=== PATIENT | female | born 1940 | race Caucasian/White ===

== ENCOUNTER 2017-06-19 03:09 | Emergency (ER) | payer MEDICARE, BC ==
[2015-12-15 10:29] VITALS: BMI 21.0
[~2017-06-19 03:09] MED LIST: ACETAMINOPHEN500 M1 PO; ARMOUR THYROID90 MG PO; BAYER CHEWABLE81 MG PO; BENADRYL25 MG PO; BUSPAR 15 MG TA15 MG PO; CALCIUM 600+D T1 TA1 PO; CRANBERRY475 MG; FISH OIL 1,2001 CAP PO; HYDROCHLOROTHIA25 MG GT; ICAPS; MAG-OXIDE400 MG PO; MECLIZINE HCL12.5 MG PO; PRILOSEC20 MG PO; PROAIR HFA8.5 GM INH; STOOL SOFTENER240 MG PO; TOPROL XL50 MG PO; TRIGLIDE160 MG PO; TUMS500 MG PO; VITAMIN B-122500 MCG PO
[2017-06-19 03:46] LABS: BASOPHILS 0.3 % (0-2); EOSINOPHILS 1.1 % (0-7); HEMATOCRIT 38.6 % (36.0-48.0); HEMOGLOBIN 12.8 g/dL (12-16); LYMPHOCYTES 39.9 % (15-50); MCHC 33.2 g/dL (31.0-37.0); MCV 87.3 fL (80.0-100.0); MEAN PLATELET VOLUME 10.1 fL (7.4-10.4); MONOCYTES 9.8 % (2-11); NEUTROPHILS 48.9 % (40-80); RBC 4.42 10x6/uL (4.00-5.40); RDW 13.1 % (11.5-14.5); WBC 3.6 10x3/uL (4.8-10.8)
[2017-06-19 03:48] LABS: PLATELET COUNT 150 10x3/uL (130-400)
[2017-06-19 03:59] LABS: ALBUMIN 3.5 g/dL (3.4-5.0); ALKALINE PHOSPHATASE 67 U/L (46-116); ALT (SGPT) 26 U/L (10-68); BILIRUBIN - TOTAL 0.31 mg/dL (0.2-1.3); CALC OSMOLALITY 290 mosm/kg (275-300); CALCIUM 8.5 mg/dL (8.5-10.1); CARBON DIOXIDE 29.9 mmol/L (21.0-32.0); CHLORIDE - SERUM 106 mmol/L (98-107); CREATININE - SERUM 0.7 mg/dL (0.6-1.3); GLUCOSE 109 mg/dL (74-106); POTASSIUM - SERUM 3.2 mmol/L (3.5-5.1); PROTEIN - SERUM 6.4 g/dL (6.4-8.2); SODIUM 144 mmol/L (136-145); UREA NITROGEN 20 mg/dL (7-18); eGFR NON AFRICAN AMERICAN 86 mL/min (90-120)
[2017-06-19 04:08] LABS: CREATINE KINASE 105 UL (21-215); MAGNESIUM - SERUM 1.3 mg/dL (1.8-2.4); TROPONIN-I < 0.017 ng/mL (0.000-0.060)
== END 2017-06-19 05:12 | disposition home or self-care (01) ==
LOC: D.ER 03:09
PROVIDERS: Emergency Medicine
DX: R00.2 Palpitations (principal); E87.6 Hypokalemia; E83.42 Hypomagnesemia; I10 Essential (primary) hypertension; I44.0 Atrioventricular block, first degree

== ENCOUNTER → 2017-09-07 10:32 | Outpatient (CLI) | payer MEDICARE, BC ==
[2015-12-15 10:29] VITALS: BMI 21.0
== END | disposition home or self-care (01) ==
LOC: D.CT 10:32
DX: R22.1 Localized swelling, mass and lump, neck (principal)

== ENCOUNTER → 2017-11-29 13:24 | Outpatient (CLI) | payer MEDICARE, BC ==
[2015-12-15 10:29] VITALS: BMI 21.0
== END | disposition home or self-care (01) ==
LOC: D.CT 13:24
DX: Z82.49 Family history of ischemic heart disease and other diseases of the circulatory system (principal)

== ENCOUNTER → 2018-03-30 13:34 | Outpatient (CLI) | payer MEDICARE, BC ==
[2015-12-15 10:29] VITALS: BMI 21.0
== END | disposition home or self-care (01) ==
LOC: D.US 03-20 10:30
DX: M79.605 Pain in left leg (principal); M79.604 Pain in right leg

== ENCOUNTER → 2018-07-13 10:27 | Outpatient (CLI) | payer MEDICARE, BC ==
[2015-12-15 10:29] VITALS: BMI 21.0
== END | disposition home or self-care (01) ==
LOC: D.CT 10:27
DX: R94.39 Abnormal result of other cardiovascular function study (principal); I73.9 Peripheral vascular disease, unspecified

== ENCOUNTER → 2019-03-13 10:46 | Outpatient (CLI) | payer MEDICARE, BC ==
[2015-12-15 10:29] VITALS: BMI 21.0
--- NOTE | 2019-03-16 11:28 | EC ---
PATIENT:ARIELA CROSS DATE OF SERVICE: 03/13/19 SEX: F MEDICAL RECORD: [id number] DATE OF : 40 LOCATION:[facility] AGE OF PATIENT: 78 ADMISSION DATE: 03/13/19 REFERRING PHYSICIAN: INTERPRETING PHYSICIAN: NESS CABA MD ECHOCARDIOGRAM REPORT ECHO CHARGES 4 ECHO COMPLETE Date: 03/13/19 CLINICAL DIAGNOSIS: ANGINA/OLMSTEAD/BRADYCARDIA H/O CAD/HTN ECHOCARDIOGRAPHIC MEASUREMENTS (adult normal given) AC root (d.<3.7cm) 3.4 cm LV Septum d (<1.2 cm> 1.0 cm Valve Excursion 1.7 cm LV Septum (systole) 1.8 cm Left Atria (s.<4.0cm> 3.9 cm LVPW d(<1.2cm) 1.1 cm RV (d.<2.3cm) 2.3 cm LVPW (sytole) 1.6 cm LV diastole(<5.6CM) 4.4 cm MV E-F(>70mm/sec) cm LV systole 2.2 cm LVOT Diameter 1.7 cm MV exc.(>10mm) cm Est.ejection fraction (50-75%) % DOPPLER: LVIT cm/sec A 142 cm/sec E 96.0 cm/sec LA cm/sec RVSP 41.4 mmHg LVOT 109 cm/sec AOP1/2T m/s Asc. Ao 156 cm/sec RVOT 76.0 cm/sec RA cm/sec PA 104 cm/sec AV Gradient Peak 9.8 mmHg AV Mean 4.5 mmHg AV Area 1.7 cm MV Gradient Peak 12.0 mmHg MV Mean 4.5 mmHg MV Area cm COMMENTS: OP - HC Public Speaking Teacher: Starr LAMBERT KURT Channel Process Supervisor: 1 Dr. Caba TAPE# PACS Pericardial Effusion N DATE OF SERVICE: 03/13/2019 FINDINGS: 1. Left ventricular chamber size is within normal limits. Left ventricular systolic function is normal. Overall ejection fraction is estimated at 60%. 2. Left atrium, right atrium, and right ventricular chamber sizes are within normal limit. 3. Valvular structures have normal structure and motion. 4. Doppler interrogation reveals trace mitral regurgitation and moderate tricuspid regurgitation. No other valvular insufficiency or stenosis. ECHOCARDIOGRAM REPORT [id number] ARIELA CROSS Pulmonary systolic pressure is estimated at 41 mmHg. 5. No evidence of pericardial effusion or left ventricular thrombus. TRANSINT:[id number] Voice Confirmation ID: [id number] DOCUMENT ID: [id number] NESS CBAA MD at 1128 CC: [id number] DICTATION DATE: 03/14/19912 LITHOGRAPHIC ARTIST: 03/14/19 1232 DEP CLI 03/13/19 [id number] [place] [address]
--- NOTE | 2019-03-16 11:28 | ST ---
PATIENT:ARIELA CROSS MEDICAL RECORD: [id number] SEX: F LOCATION:[facility] ORDER #: ADMISSION DATE: 03/13/19 AGE OF PATIENT: 78 REFERRING PHYSICIAN: INTERPRETING PHYSICIAN: NESS DEL CASTILLO MD DATE OF SERVICE: 03/13/2019 PROCEDURE: Nuclear stress test. INDICATION: Angina, coronary artery disease, shortness of breath, and hypertension. She was exercised on standard Lexiscan protocol with 31 mCi of sestamibi injected at peak stress, 10 mCi used previously for rest images. FINDINGS: Gated SPECT reveals preserved ejection fraction at 68% with good wall motion and thickening and brightening throughout all segments. SPECT imaging Cardiolite was used as myocardial fusion agent. There is homogeneous uptake throughout all segments at rest and stress with no evidence of inducible ischemia or previous infarction. OVERALL IMPRESSION: 1. This is a normal nuclear stress test with no evidence of inducible ischemia or previous infarction. 2. Gated SPECT reveals a preserved ejection fraction at 68%. In this patient with ongoing symptomatology, the current scan does not suggest the presence of hemodynamically significant coronary artery disease. Evaluate noncardiac etiology of chest pain. TRANSINT:[id number] Voice Confirmation ID: [id number] DOCUMENT ID: [id number] NESS DEL CASTILLO MD at 1128 CC: MER MOORE DO [id number] DICTATION DATE: 03/14/19 0908 CHAPERONE: 03/15/19 0000 DEP CLI 03/13/19 [id number] [place] [address]
== END | disposition home or self-care (01) ==
LOC: D.HCCARDIO 10:46
PROVIDERS: ATTEND Internal Medicine Interventional Cardiology
DX: I25.119 Atherosclerotic heart disease of native coronary artery with unspecified angina pectoris (principal)